=== PATIENT | female | born 1935 | race Caucasian/White ===

== ENCOUNTER → 2016-09-06 | Outpatient (CLI) | payer MEDICARE ==
[~2016-09-06] MED LIST: HYDR-2768 PO; PRIL20TA2 PO; RAMI10CA PO; SERT100 PO
[2016-09-06 13:07] LABS: AUTOMATED NEUTROPHIL # 2.1 TH/MM3 (1.8-7.7); BASOPHIL % 0.9 % (0.0-2.0); EOSINOPHIL # 0.1 TH/MM3 (0-0.4); EOSINOPHIL % 2.4 % (0.0-4.0); HEMATOCRIT 39.7 % (35.0-46.0); HEMO FLAGS DIFF FINAL; LYMPH % 41.7 % (9.0-44.0); LYMPHOCYTE # 1.9 TH/MM3 (1.0-4.8); MEAN CELL VOLUME 94.7 FL (80.0-100.0); MEAN CORPUSCULAR HEMOGLOBIN 32.8 PG (27.0-34.0); MEAN CORPUSCULAR HGB CONC 34.7 % (32.0-36.0); PLATELET COUNT 158 TH/MM3 (150-450); RED BLOOD COUNT 4.19 MIL/MM3 (4.00-5.30); RED CELL DISTRIBUTION WIDTH 13.7 % (11.6-17.2); WHITE BLOOD COUNT 4.5 TH/MM3 (4.0-11.0)
[2016-09-06 13:36] LABS: ANION GAP 7 MEQ/L (5-15); AST (GOT) 87 U/L (15-37); BLOOD UREA NITROGEN 28 MG/DL (7-18); CHLORIDE 108 MEQ/L (98-107); GLOMERULAR FILTRATION RATE 44 ML/MIN (>89); GLUCOSE,FASTING 79 MG/DL (74-99); SODIUM (NA) 143 MEQ/L (136-145)
[2016-09-06 13:39] LABS: ALKALINE PHOSPHATASE 77 U/L (45-117); ALT (GPT) 104 U/L (10-53); HDL CHOLESTEROL 40.4 MG/DL (40.0-60.0); LDL CHOLESTEROL 80 MG/DL (0-99); TOTAL BILIRUBIN ADULT 0.5 MG/DL (0.2-1.0)
[2016-09-08 03:55] LABS: HCV RNA PCR LOGIU/ML 5.7 (())
== END ==
LOC: PLAB 07:55
PROVIDERS: ATTEND Family Medicine
DX: I12.9 Hypertensive chronic kidney disease with stage 1 through stage 4 chronic kidney disease, or unspecified chronic kidney disease (principal); N18.3 Chronic kidney disease, stage 3 (moderate); B18.2 Chronic viral hepatitis C; M79.676 Pain in unspecified toe(s); E78.2 Mixed hyperlipidemia
CPT/HCPCS: 36415; 80053; 80061; 84550; 85025; 87522

== ENCOUNTER → 2017-03-20 | Outpatient (CLI) | payer MEDICARE ==
[2017-03-20 11:09] LABS: AUTOMATED NEUTROPHIL # 1.6 TH/MM3 (1.8-7.7); BASOPHIL % 0.3 % (0.0-2.0); EOSINOPHIL # 0.1 TH/MM3 (0-0.4); EOSINOPHIL % 2.8 % (0.0-4.0); HEMATOCRIT 39.5 % (35.0-46.0); HEMO FLAGS DIFF FINAL; LYMPH % 48.5 % (9.0-44.0); MEAN CELL VOLUME 95.7 FL (80.0-100.0); MEAN CORPUSCULAR HEMOGLOBIN 32.4 PG (27.0-34.0); MEAN CORPUSCULAR HGB CONC 33.9 % (32.0-36.0); MONO % 8.9 % (0.0-8.0); NEUT % 39.5 % (16.0-70.0); PLATELET COUNT 135 TH/MM3 (150-450); RED BLOOD COUNT 4.13 MIL/MM3 (4.00-5.30); RED CELL DISTRIBUTION WIDTH 13.2 % (11.6-17.2); WHITE BLOOD COUNT 4.1 TH/MM3 (4.0-11.0)
[2017-03-20 11:19] LABS: ANION GAP 6 MEQ/L (5-15); AST (GOT) 165 U/L (15-37); BICARBONATE 27.6 MEQ/L (21.0-32.0); BLOOD UREA NITROGEN 16 MG/DL (7-18); CHLORIDE 105 MEQ/L (98-107); GLOMERULAR FILTRATION RATE 44 ML/MIN (>89); GLUCOSE,FASTING 77 MG/DL (74-99); POTASSIUM 3.7 MEQ/L (3.5-5.1); SODIUM (NA) 139 MEQ/L (136-145)
[2017-03-20 11:20] LABS: ALT (GPT) 165 U/L (10-53)
[2017-03-20 11:22] LABS: ALKALINE PHOSPHATASE 74 U/L (45-117); HDL CHOLESTEROL 41.1 MG/DL (40.0-60.0); LDL CHOLESTEROL 60 MG/DL (0-99); TOTAL BILIRUBIN ADULT 0.4 MG/DL (0.2-1.0)
== END ==
LOC: PLAB 07:57
PROVIDERS: ATTEND Family Medicine
DX: E78.2 Mixed hyperlipidemia (principal); I12.9 Hypertensive chronic kidney disease with stage 1 through stage 4 chronic kidney disease, or unspecified chronic kidney disease; N18.3 Chronic kidney disease, stage 3 (moderate); B18.2 Chronic viral hepatitis C
CPT/HCPCS: 36415; 80053; 80061; 85025

== ENCOUNTER → 2017-04-02 | Outpatient (CLI) | payer MEDICARE ==
[2017-04-02 12:13] LABS: FREE T4 1.39 NG/DL (0.76-1.46)
[2017-04-04 23:50] LABS: STRIATED MUCLE AB TITER ND (<1:40)
[2017-04-05 03:51] LABS: ACETYLCHOLINE REC BINDING LESS THAN 0.30 nmol/L
== END ==
LOC: PLAB 09:45
PROVIDERS: ATTEND Family Medicine
DX: H53.2 Diplopia (principal); R13.10 Dysphagia, unspecified; H05.20 Unspecified exophthalmos
CPT/HCPCS: 36415; 83519; 84439; 84443; 86255

== ENCOUNTER → 2017-09-24 | Outpatient (CLI) | payer MEDICARE ==
[2017-09-24 12:17] LABS: ALBUMIN 3.5 GM/DL (3.4-5.0); AST (GOT) 39 U/L (15-37); BICARBONATE 28.1 MEQ/L (21.0-32.0); BLOOD UREA NITROGEN 18 MG/DL (7-18); CALCIUM 9.2 MG/DL (8.5-10.1); CHLORIDE 107 MEQ/L (98-107); CREATININE 1.13 MG/DL (0.50-1.00); GLOMERULAR FILTRATION RATE 46 ML/MIN (>89); GLUCOSE,FASTING 78 MG/DL (74-99); SODIUM (NA) 142 MEQ/L (136-145)
[2017-09-24 12:29] LABS: ALKALINE PHOSPHATASE 72 U/L (45-117); ALT (GPT) 38 U/L (10-53); CHOLESTEROL 147 MG/DL (120-200); CHOLESTEROL/ HDL RATIO 4.24 RATIO; HDL CHOLESTEROL 34.6 MG/DL (40.0-60.0); LDL CHOLESTEROL 79 MG/DL (0-99); TOTAL BILIRUBIN ADULT 0.3 MG/DL (0.2-1.0); TOTAL PROTEIN 8.4 GM/DL (6.4-8.2); TRIGLYCERIDES 165 MG/DL (42-150)
== END ==
LOC: PLAB 08:01
PROVIDERS: ATTEND Family Medicine
DX: I10 Essential (primary) hypertension (principal); R79.89 Other specified abnormal findings of blood chemistry; B18.2 Chronic viral hepatitis C; R13.10 Dysphagia, unspecified; M85.80 Other specified disorders of bone density and structure, unspecified site; M54.2 Cervicalgia
CPT/HCPCS: 36415; 80053; 80061; 87522